=== PATIENT | male | born 1960 | race Caucasian/White ===

== ENCOUNTER → 2017-12-01 | Emergency (ER) | payer OTHER ==
[~2017-12-01] VITALS: Ht 175.3 cm; Wt 111.6 kg
[~2017-12-01] MED LIST: GABAPENTIN600 MG; GLUCOPHAGE XR750 MG; LIPITOR40 MG; NORVASC10 MG
== END | disposition home or self-care (01) ==
LOC: ER 12:02
DX: N41.8 Other inflammatory diseases of prostate (principal); N39.0 Urinary tract infection, site not specified; B96.5 Pseudomonas (aeruginosa) (mallei) (pseudomallei) as the cause of diseases classified elsewhere; B96.89 Other specified bacterial agents as the cause of diseases classified elsewhere

== ENCOUNTER → 2018-01-14 | Outpatient (CLI) | payer OTHER | END | disposition home or self-care (01) | LOC: WOUND MED 10:25 → EDSTATUS 12:46 | DX: L97.321 Non-pressure chronic ulcer of left ankle limited to breakdown of skin (principal); I87.2 Venous insufficiency (chronic) (peripheral) | CPT/HCPCS: G0463; A4554; A4930; A6216; A6219 ==

== ENCOUNTER → 2018-01-21 | Outpatient (CLI) | payer OTHER | END | disposition home or self-care (01) | LOC: WOUND MED 10:01 | DX: L97.321 Non-pressure chronic ulcer of left ankle limited to breakdown of skin (principal); I87.2 Venous insufficiency (chronic) (peripheral) | CPT/HCPCS: G0463; A4554; A4930; A6196; A6216; A6219 ==

== ENCOUNTER 2018-08-11 08:24 | Outpatient (CLI) | payer OTHER | END 2018-08-11 08:35 | disposition home or self-care (01) | LOC: TOM 08:24 | DX: N30.00 Acute cystitis without hematuria (principal) | CPT/HCPCS: 74178; Q9965 ==

== ENCOUNTER 2018-08-26 15:33 | Outpatient (CLI) | payer OTHER | END 2018-08-26 15:41 | disposition home or self-care (01) | LOC: LAB 15:33 | DX: R97.20 Elevated prostate specific antigen [PSA] (principal) ==

== ENCOUNTER → 2025-01-18 | Emergency (ER) | payer OTHER | END | disposition left against medical advice (07) | LOC: ER 00:09 | DX: Z53.21 Procedure and treatment not carried out due to patient leaving prior to being seen by health care provider (principal) ==